=== PATIENT | female | born 1985 ===

== ENCOUNTER 2018-11-23 07:11 | Emergency (ER) | payer MEDICAID ==
[~2018-11-23] VITALS: Ht 149.9 cm; Wt 127.0 kg
[~2018-11-23 07:11] MED LIST: Cephalexin 500mg cap ORAL SCH
[2018-11-23 07:41] VITALS: BP 115/80
--- NOTE | 2018-11-23 07:44 | NUR ---
ED Nurse Note: pt biba ambulatory c/o nausea and anuria. Ermd staral done urine sent to lab will monitor.
[2018-11-23 07:52] LABS: APPEARANCE,URINE CLOUDY; BILIRUBIN, URINE 2+ (NEGATIVE); GLUCOSE, URINE (UA) 1+ (NEGATIVE); KETONES,URINE 2+ (NEGATIVE); LEUKOCYTE ESTERASE ,URINE 3+ (NEGATIVE); NITRITE,URINE POSITIVE (NEGATIVE); PH,URINE 5 (4.5-8.0); PROTEIN,URINE 3+ (NEGATIVE); UROBILINOGEN,URINE 4 MG/DL (0.0-1.0)
[2018-11-23 07:59] LABS: COLOR,URINE YELLOW
[2018-11-23] MEDS ORDERED: Cephalexin 500mg cap ORAL ONE (08:15)
[2018-11-23] MEDS ORDERED: PHENAZOPYRIDIN100 MG ORAL (08:30)
[2018-11-23] MEDS ORDERED: CEPHALEXIN500 MG ORAL (08:30)
--- NOTE | 2018-11-23 09:04 | NUR ---
ED Nurse Note: homeless log and packet filled pt frovided food. meds sent to pharmacy awaiting meds.
--- NOTE | 2018-11-23 09:30 | Emergency Room Report ---
History of Present Illness General Chief Complaint: Female Urogenital Problems Source: Patient, EMS Present Illness HPI 33-year-old female presents ED for evaluation. Presents ED complaining of suprapubic pain with dysuria last 2 days. Pain is sharp, 5 out of 10, nonradiating. Denies fevers or chills. Denies flank pain. Notes nausea, denies vomiting. Notes prior history of UTI. No other aggravating relieving factors. Denies any other associated symptoms Allergies: Coded Allergies: No Known Allergies (Unverified , 11/23/18) Patient History Past Medical History: psych hx Past Surgical History: none Pertinent Family History: none Social History: Denies: smoking, alcohol use, drug use Last Menstrual Period: 4-15 Now: No Immunizations: UTD Reviewed Nursing Documentation: PMH: Agreed; PSxH: Agreed Nursing Documentation-PMH Past Medical History: No History, Except For History Of Psychiatric Problem: Yes - bipolar Review of Systems All Other Systems: negative except mentioned in HPI Physical Exam Vital Signs Date Time Temp Pulse Resp B/P (MAP) Pulse Ox O2 Delivery O2 Flow Rate FiO2 11/23/18 07:07 98.1 84 20 99 Room Air 11/23/18 07:41 115/80 Sp02 EP Interpretation: reviewed, normal General Appearance: no apparent distress, alert, GCS 15, non-toxic, obese Head: normocephalic, atraumatic Eyes: bilateral eye normal inspection, bilateral eye PERRL ENT: hearing grossly normal, normal pharynx, no angioedema, normal voice Neck: full range of motion, supple/symm/no masses Respiratory: chest non-tender, lungs clear, normal breath sounds, speaking full sentences Cardiovascular #1: regular rate, rhythm, no edema Cardiovascular #2: 2+ carotid (R), 2+ carotid (L), 2+ radial (R), 2+ radial (L) , 2+ dorsalis pedis (R), 2+ dorsalis pedis (L) Gastrointestinal: normal bowel sounds, non tender, soft, non-distended, no guarding, no rebound Rectal: deferred Genitourinary: normal inspection, no CVA tenderness Musculoskeletal: back normal, gait/station normal, normal range of motion, non- tender Neurologic: alert, oriented x3, responsive, motor strength/tone normal, sensory intact, speech normal Psychiatric: judgement/insight normal, memory normal, mood/affect normal, no suicidal/homicidal ideation Reflexes: 3+ bicep (R), 3+ bicep (L), 3+ tricep (R), 3+ tricep (L), 3+ knee (R) , 3+ knee (L) Skin: normal color, no rash, warm/dry, well hydrated Lymphatic: no adenopathy Medical Decision Making Homeless Attestation I, The treating physician Dr. Gómez, has assessed and agrees that patient is medically stable for discharge to an outpatient disposition. Diagnostic Impression: Primary Impression: Cystitis ER Course Hospital Course 33-year-old female presents to ED complaining of dysuria with suprapubic pain. Differential diagnoses include: UTI, cystitis, pyelonephritis Clinical course Patient placed on stretcher. After initial history and physical I ordered UA, urine , zofran. UA + blood + bacteria. consistent with cystitis. discussed findings with patient. Given Keflex here. Safe for discharge with close outpatient follow-up. We'll provide prescriptions. PMD referrals. homeless checklist completed Diagnosis - cystitis Stable and discharged home with prescriptions for Rx Keflex, pyridium. Instructed to followup with PMD. Return to ED if symptoms recur or worsen Labs Test 11/23/18 07:32 Urine Color Yellow Urine Appearance Cloudy Urine pH 5 (4.5-8.0) Urine Specific [place] 1.025 (1.005-1.035) Urine Protein 3+ (NEGATIVE) Urine Glucose (UA) 1+ (NEGATIVE) Urine Ketones 2+ (NEGATIVE) Urine Blood 5+ (NEGATIVE) Urine Nitrite Positive (NEGATIVE) Urine Bilirubin 2+ (NEGATIVE) Urine Ictotest Negative (NEGATIVE) Urine Urobilinogen 4 MG/DL (0.0-1.0) Urine Leukocyte Esterase 3+ (NEGATIVE) Urine RBC 10-15 /HPF (0 - 2) Urine WBC 60-80 /HPF (0 - 2) Urine Squamous Epithelial Cells Few /LPF (NONE/OCC) Urine Bacteria Many /HPF (NONE) Urine HCG, Qualitative Negative (NEGATIVE) Last Vital Signs Date Time Temp Pulse Resp B/P (MAP) Pulse Ox O2 Delivery O2 Flow Rate FiO2 11/23/18 07:41 98.1 20 115/80 99 Room Air 11/23/18 07:07 84 Status: improved Disposition: HOME, SELF-CARE Condition: Stable Scripts Phenazopyridine Hcl* (PYRIDIUM*) 100 Mg Tablet 100 MG ORAL THREE TIMES A DAY for 3 Days, TAB Prov: Johnnie Gómez MD 11/23/18 Cephalexin* (KEFLEX*) 500 Mg Capsule 500 MG ORAL EVERY 6 HOURS for 7 Days, CAP Prov: Johnnie Gómez MD 11/23/18 Referrals: [facility] Patient Instructions: Hematuria, Adult Johnnie Gómez MD November 23, 2018 09:30
[2018-11-23 10:06] VITALS: BP 118/79
--- NOTE | 2018-11-23 10:10 | NUR ---
ED Nurse Note: pt provided with 3 day supply of meds and given scripts and aci verbalized understanding ambulated out of er with strong and steady gait.
== END 2018-11-23 10:11 | disposition home or self-care (01) ==
LOC: EDBD 07:11 → EMR 08:08
DX: N30.90 Cystitis, unspecified without hematuria (principal); F31.9 Bipolar disorder, unspecified; E66.9 Obesity, unspecified; Z68.43 Body mass index [BMI] 50.0-59.9, adult
CPT/HCPCS: 81003; 81025; 87086; 87181; 96372; 99283; J2405